=== PATIENT | male | born 1980 | race Caucasian/White ===

== ENCOUNTER 2023-11-05 23:30 | Emergency (ER) | payer SELFPAY ==
[~2023-11-05] VITALS: Ht 190.5 cm; Wt 168.2 kg
[2023-11-05 23:37] VITALS: TEMP 98.7
[2023-11-06 00:42] LABS: BASO % 0.4 % (0.0-2.0); EOS # 0.2 K/mm3 (0.0-0.7); EOS % 3.1 % (0.0-4.0); GRAN # 4.1 K/mm3 (1.4-6.5); GRAN % 61.2 % (42.2-75.2); HEMATOCRIT 34.2 % (42.0-52.0); HEMOGLOBIN 11.3 g/dl (13.5-18.0); LYMPH # 1.8 K/mm3 (1.2-3.4); LYMPH % 26.7 % (20.0-51.0); MEAN CELL VOLUME 88 fl (80.0-100.0); MEAN CORPUSCULAR HEMOGLOBIN 29 pg (27-31); MEAN CORPUSCULAR HGB CONC 33 g/dl (33.0-37.0); MEAN PLATELET VOLUME 9.7 fl (7.4-10.4); MONO # 0.5 K/mm3 (0.1-0.6); PLATELET COUNT 311 K/mm3 (130-400); RED BLOOD COUNT 3.91 M/mm3 (4.20-5.60)
[2023-11-06 01:05] LABS: ALANINE AMINOTRANSFERASE 31 U/L (0-55); ALBUMIN 3.5 gm/dL (3.5-5.0); ALKALINE PHOSPHATASE 74 U/L (40-150); ANION GAP 11 mmol/L (7-16); AST,SGOT 33 U/L (5-34); BILIRUBIN,TOTAL 0.3 mg/dL (0.2-1.2); BLOOD UREA NITROGEN 11 mg/dL (9-21); CALCIUM 9.2 mg/dL (8.4-10.2); CARBON DIOXIDE 24 mmol/L (22-29); CHLORIDE 106 mmol/L (98-107); CREATININE, serum 0.89 mg/dL (0.72-1.25); GLUCOSE 169 mg/dL (70-99); LIPASE 21 U/L (8-78); POTASSIUM 3.8 mmol/L (3.5-4.5); SODIUM 141 mmol/L (136-145); TOTAL PROTEIN 6.7 gm/dL (6.2-8.1)
[2023-11-06 01:12] LABS: TROPONIN-I < 0.010 ng/mL (0.00-0.033)
[2023-11-06 01:59] VITALS: BP 107/77; PULSE 76
== END 2023-11-06 02:00 | disposition home or self-care (01) ==
LOC: COL.ER 23:30
PROVIDERS: Nurse Practitioner Primary Care
DX: R07.89 Other chest pain (principal)
CPT/HCPCS: J1200; J1885

== ENCOUNTER → 2023-12-12 | Outpatient (CLI) | payer OTHER | LOC: COL.RAD 08:55 | DX: M51.36 Other intervertebral disc degeneration, lumbar region (principal); M47.817 Spondylosis without myelopathy or radiculopathy, lumbosacral region; M48.07 Spinal stenosis, lumbosacral region; Z98.1 Arthrodesis status ==

== ENCOUNTER 2024-04-27 05:59 | Day surgery (SDC) | payer OTHER ==
[~2024-04-27] VITALS: Ht 188 cm; Wt 165.2 kg
[~2024-04-27 05:59] MED LIST: LR 1,000 ML IV SCH; Ondansetron 4 MG/2 ML VIAL IV PRN
[2024-04-27] MEDS ORDERED: Lidocaine PF 2% (20 MG/ML) 5 ML VIAL ONE (07:30)
[2024-04-27 08:10] VITALS: BP 118/87; PULSE 84; TEMP 98.1
[2024-04-27 08:25] VITALS: BP 123/86; PULSE 84
--- NOTE | 2024-04-27 08:32 | NUR ---
0810: Pt back to [facility] - ambulated from cart to chair with one assist 0811: MD Heike in room with pt 0815: pt tolerating PO intake well 0830: pt verbalizes understanding discharge education 0835: pt escorted out via wheelchair to mothers vehicle
[2024-04-27 08:40] VITALS: BP 122/91; PULSE 80
[2024-04-27] MEDS ORDERED: OXYCONTIN30 MG PO (13:54)
[2024-04-27] MEDS ORDERED: VALIUM 10MG10 MG/TAB PO (13:55)
[2024-04-27] MEDS ORDERED: NEURONTIN300 MG/CAP PO (13:56)
[2024-04-27] MEDS ORDERED: FENTANYL 50MCG TD (13:58)
[2024-04-27] MEDS ORDERED: XANAX 1MG1 MG PO (13:59)
[2024-04-27] MEDS ORDERED: PRINIVIL10 MG PO (14:00)
[2024-04-27] MEDS ORDERED: ADDERALL XR30 MG PO (14:00)
[2024-04-27] MEDS ORDERED: PRISTIQ100 MG PO (14:01)
[2024-04-27] MEDS ORDERED: MINIPRESS 1M1 MG/CAP PO (14:02)
[2024-04-27 14:16] VITALS: BP 132/104; PULSE 114; TEMP 98.1
== END 2024-04-27 08:45 | disposition home or self-care (01) ==
LOC: SDCO 05:59
DX: Z12.11 Encounter for screening for malignant neoplasm of colon (principal); D12.0 Benign neoplasm of cecum; K57.30 Diverticulosis of large intestine without perforation or abscess without bleeding; G47.33 Obstructive sleep apnea (adult) (pediatric); F17.290 Nicotine dependence, other tobacco product, uncomplicated; Z86.718 Personal history of other venous thrombosis and embolism; Z80.0 Family history of malignant neoplasm of digestive organs
CPT/HCPCS: J2405; J2704; J7120

== ENCOUNTER 2024-04-27 20:15 | Emergency (ER) | payer SELFPAY ==
[~2024-04-27] VITALS: Ht 188 cm; Wt 165.0 kg
[~2024-04-27 20:15] MED LIST changes: +ADDERALL XR30 MG PO; +FENTANYL 50MCG TD; -LR 1,000 ML IV SCH; +MINIPRESS 1M1 MG/CAP PO; +NEURONTIN300 MG/CAP PO; +OXYCONTIN30 MG PO; -Ondansetron 4 MG/2 ML VIAL IV PRN; +PRINIVIL10 MG PO; +PRISTIQ100 MG PO; +VALIUM 10MG10 MG/TAB PO; +XANAX 1MG1 MG PO
[2024-04-27 20:22] VITALS: TEMP 98.4
[2024-04-27 21:19] LABS: BASO % 0.4 % (0.0-2.0); EOS # 0.2 K/mm3 (0.0-0.7); EOS % 1.5 % (0.0-4.0); GRAN # 7.4 K/mm3 (1.4-6.5); GRAN % 71.7 % (42.2-75.2); HEMATOCRIT 38.3 % (42.0-52.0); HEMOGLOBIN 12.7 g/dl (13.5-18.0); LYMPH % 19.2 % (20.0-51.0); MEAN CELL VOLUME 87 fl (80.0-100.0); MEAN CORPUSCULAR HEMOGLOBIN 29 pg (27-31); MEAN CORPUSCULAR HGB CONC 33 g/dl (33.0-37.0); MEAN PLATELET VOLUME 9.7 fl (7.4-10.4); MONO # 0.7 K/mm3 (0.1-0.6); MONO % 6.3 % (1.7-9.3); PLATELET COUNT 317 K/mm3 (130-400); RED BLOOD COUNT 4.42 M/mm3 (4.20-5.60)
[2024-04-27 21:44] LABS: ALANINE AMINOTRANSFERASE 24 U/L (0-55); ALBUMIN 3.3 g/dL (3.5-5.0); ALKALINE PHOSPHATASE 91 U/L (40-150); ANION GAP 11 mmol/L (7-16); AST,SGOT 24 U/L (5-34); BILIRUBIN,TOTAL 0.2 mg/dL (0.2-1.2); BLOOD UREA NITROGEN 14 mg/dL (9-21); CALCIUM 9.6 mg/dL (8.4-10.2); CHLORIDE 107 mEq/L (98-107); CREATININE, serum 1.03 mg/dL (0.72-1.25); GLUCOSE 202 mg/dL (70-99); POTASSIUM 3.8 mEq/L (3.5-4.5); SODIUM 142 mEq/L (136-145); TOTAL PROTEIN 7.3 g/dl (6.2-8.1)
[2024-04-27 22:08] LABS: ALCOHOL(ethanol),MEDICAL < 10 mg/dL (0-10); SALICYLATE < 5.0 mg/dL (15.0-30.0)
[2024-04-27 22:19] LABS: PH 5.5 (5.0-8.5); URINE APPEARANCE CLEAR (CLEAR/HAZY); URINE BLOOD NEGATIVE (NEGATIVE); URINE COLOR YELLOW (YELLOW); URINE GLUCOSE NEGATIVE (NEGATIVE); URINE KETONE TRACE (NEGATIVE); URINE NITRATE NEGATIVE (NEGATIVE); URINE PROTEIN(semi-quant) NEGATIVE (NEGATIVE)
[2024-04-27 22:28] LABS: COLLECTION METHOD CLEAN CATCH
[2024-04-27 22:37] LABS: TRICYCLIC ANTIDEPRESS URINE NEGATIVE (NEGATIVE)
[2024-04-27] MEDS ORDERED: Ondansetron 4 MG/2 ML VIAL IV ONE (23:30)
[2024-04-28 02:10] VITALS: BP 115/85; PULSE 76
== END 2024-04-28 02:10 | disposition home or self-care (01) ==
LOC: COL.ER 20:15
PROVIDERS: Nurse Practitioner Primary Care
DX: T42.4X1A Poisoning by benzodiazepines, accidental (unintentional), initial encounter (principal)
CPT/HCPCS: J2405